=== PATIENT | male | born 1975 | race American Indian/Alaskan Native ===

== ENCOUNTER 2017-12-10 11:37 | Emergency (ER) | payer SELFPAY ==
--- NOTE | 2017-12-10 12:28 | XRay Report ---
RIGHT KNEE, 3 views: History: Right knee pain, injury The bony architecture is intact without evidence of fracture or dislocation. No joint effusion. Chronic calcifications overlie the course of the proximal MCL suggesting previous injury. 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 No acute process.
--- NOTE | 2017-12-10 15:53 | Emergency Department Report ---
HPI - General Chief Complaint: Extremity Injury, Lower Time Seen by Provider: 12/10/17 15:42 - HPI HPI: 42-year-old male presents to the emergency department with complaint of right knee pain that has been going on since the patient "twisted my knee" earlier today. He has been able to ambulate but he has pain with doing so and still has a throbbing pain when he is resting. He feels that the area is slightly swollen. He does not currently have a primary care physician. He tried some qvgn-ihr-jlpjupr pain medication for his symptoms without any relief. He has a history of eyg-ibgkexz-tudydtsez diabetes. ED Past Medical Hx - Past Medical History Hx Diabetes: Yes Hx Asthma: Yes - Social History Smoking Status: Current Every Day Smoker Substance Use Type: None - Medications Home Medications: Home Medications Medication Instructions Recorded Confirmed Last Taken Type ALBUTEROL Inhaler [ProAir HFA 2 puff IH QID PRN #1 inhalation 05/19/15 Unknown Rx Inhaler] HYDROcodone/APAP 5-325 [[place] 1 each PO Q6HR PRN #14 tablet 12/10/17 Unknown Rx 5/325] glipiZIDE [Glucotrol] 10 mg PO QDAY #30 tablet 12/10/17 Unknown Rx metFORMIN [Glucophage] 1,000 mg PO BID #60 tablet 12/10/17 Unknown Rx ED Review of Systems ROS: Stated complaint: RIGHT KNEE INJURY Other details as noted in HPI Comment: All other systems reviewed and negative Constitutional: denies: chills, fever Eyes: denies: eye pain, eye discharge, vision change ENT: denies: ear pain, throat pain Respiratory: denies: cough, shortness of breath, wheezing Cardiovascular: denies: chest pain, palpitations Gastrointestinal: denies: abdominal pain, nausea, diarrhea Genitourinary: denies: urgency, dysuria Musculoskeletal: joint swelling, arthralgia Skin: denies: rash, lesions Neurological: denies: headache, weakness, paresthesias Physical Exam - Physical Exam Vital Signs: Vital Signs 12/10/17 11:55 Temperature 98.5 F Pulse Rate 119 H Respiratory 18 Rate Blood Pressure 131/77 O2 Sat by Pulse 98 Oximetry Physical Exam: GENERAL: The patient is well-developed well-nourished. HENT: Normocephalic. Atraumatic. Patient has moist mucous membranes. EYES: Extraocular motions are intact. NECK: Supple. Trachea is midline. CHEST/LUNGS: Clear to auscultation. There is no respiratory distress noted. HEART/CARDIOVASCULAR: Regular. There is no tachycardia. There is no murmur. ABDOMEN: There is no abdominal distention. SKIN: There is some mild nonpitting swelling of the right knee. NEURO: The patient is awake, alert, and oriented. The patient is cooperative. The patient has no focal neurologic deficits. The patient has normal speech. MUSCULOSKELETAL: There is tenderness to palpation to the circumferential right knee. Negative anterior and posterior drawer test. No laxity with valgus or varus stress. ED Course Vital Signs 12/10/17 11:55 Temperature 98.5 F Pulse Rate 119 H Respiratory 18 Rate Blood Pressure 131/77 O2 Sat by Pulse 98 Oximetry ED Medical Decision Making - Radiology Data Radiology results: image reviewed interpreted by me: X-ray of the right knee does not show any dislocation. There is a small area of bone to the medial distal femur that is a questionable avulsion fracture. However this was later read by radiology as no acute fracture seen. - Medical Decision Making Patient presents with some right knee pain after twisting his knee. He has been unable to bear weight secondary to his discomfort. On physical examination it does not appear to be an unstable joint. He appears neurovascularly intact. He will be placed in a knee immobilizer and given orthopedic referrals. He understands that if he continues to have discomfort or feelings of instability to the joint, that he will possibly need an MRI in the near future. He was given a small amount of pain medication and I gave him a refill for his diabetes meds. He had some tachycardia when he first arrived but that resolved without any other intervention and otherwise his vital signs and stable throughout his ED course including being afebrile. - Differential Diagnosis knee fracture, so patient, sprain, strain, contusion Critical Care Time: No Critical care attestation.: If time is entered above; I have spent that time in minutes in the direct care of this critically ill patient, excluding procedure time. ED Disposition Clinical Impression: Right knee pain Qualifiers: Chronicity: acute Qualified Code(s): M25.561 - Pain in right knee Disposition: DC-01 TO HOME OR SELFCARE Is pt being admited?: No Condition: Stable Instructions: Knee Pain (ED) Additional Instructions: Please follow up with an orthopedist in the next few days. You can use rest, ice, elevation for the discomfort and inflammation. I have also prescribed for you some pain medication to take when you are at home without any responsibilities. You have been prescribed a medication that is sedating and therefore should not be taken prior to driving, working, and responsible for children and in no way should be mixed with alcohol of any quantity. Return to the emergency Department with any worsening of your symptoms or any acute distress. Prescriptions: glipiZIDE [Glucotrol] 10 mg PO QDAY #30 tablet HYDROcodone/APAP 5-325 [[place] 5/325] 1 each PO Q6HR PRN #14 tablet PRN Reason: Pain metFORMIN [Glucophage] 1,000 mg PO BID #60 tablet Referrals: PRIMARY CAREMD [Primary Care Provider] - 3-5 Days VLADIMIR DE OLIVEIRA MD [Staff Physician] - 3-5 Days [facility] [Provider Group] - 3-5 Days Forms: Accompanied Note, Work/School Release Form(ED) Time of Disposition: 15:59
[2017-12-10 15:55] VITALS: BP 135/85
== END 2017-12-10 16:12 | disposition home or self-care (01) ==
LOC: ED 11:37
DX: M25.561 Pain in right knee (principal); J45.909 Unspecified asthma, uncomplicated; E11.9 Type 2 diabetes mellitus without complications; F17.200 Nicotine dependence, unspecified, uncomplicated; Z79.84 Long term (current) use of oral hypoglycemic drugs; Z91.013 Allergy to seafood
CPT/HCPCS: 99283

== ENCOUNTER 2018-11-07 05:41 | Emergency (ER) | payer OTHER ==
[2018-11-07 05:59] VITALS: BP 163/104
[2018-11-07] MEDS ORDERED: TORADOL IM ONE (06:42)
[2018-11-07] MEDS ORDERED: DECADRON IM ONE (06:42)
--- NOTE | 2018-11-07 07:34 | Emergency Department Report ---
ED ENT HPI - General Chief complaint: Sore Throat Stated complaint: THROAT PAIN JOSE WITH ASTHMA Time Seen by Provider: 11/07/18 07:19 Source: patient Mode of arrival: Ambulatory Limitations: No Limitations - History of Present Illness Initial comments: Patient is a 43-year-old -[place] male with a history of asthma and sku-jgxfjsp-grfcgqjue diabetes who presents to the ED with complaint of acute onset of persistent nasal and sinus congestion, dry cough and sore throat with swollen tonsils for the last 4 days. Patient states that he is currently on Flonase, Zyrtec and ibuprofen prescribed days ago by an urgent care clinic after the rapid strep test was performed and was negative. Patient states that in the last 12 hours with sore throat has worsened tonight that he is unable to eat anything or swelling anything because of severe pain. Patient denies shortness of breath, dizziness, fever, chills, nausea, vomiting, discharge her, dysphonia, swollen lips or tongue, dizziness or headache, chest pain or dizziness MD complaint: sore throat, difficulty swallowing -: Sudden, days(s) (4) Location: throat Severity: severe Severity scale (0 -10): 7 Quality: burning, aching, sharp Consistency: constant Improves with: none Worsens with: swallowing, eating Associated Symptoms: cough, pain with swallowing, sore throat, rhinorrhea - Related Data Previous Rx's Medication Instructions Recorded Last Taken Type ALBUTEROL Inhaler (OR & NICU) 2 puff IH QID PRN #1 inhalation 05/19/15 Unknown Rx [ProAir HFA Inhaler] HYDROcodone/APAP 5-325 [[place] 1 each PO Q6HR PRN #14 tablet 12/10/17 Unknown Rx 5/325] glipiZIDE [Glucotrol] 10 mg PO QDAY #30 tablet 12/10/17 Unknown Rx metFORMIN [Glucophage] 1,000 mg PO BID #60 tablet 12/10/17 Unknown Rx Acetaminophen/Codeine [Tylenol 1 tab PO Q6H PRN #12 tab 11/07/18 Unknown Rx /Codeine # 3 tab] Lidocaine Viscous 2% 10 ml PO Q6H PRN #120 ml 11/07/18 Unknown Rx Penicillin V Potassium 500 mg PO Q6H #40 tablet 11/07/18 Unknown Rx methylPREDNISolone [Medrol] 4 mg PO DAILY #21 tab.ds.pk 11/07/18 Unknown Rx Allergies Allergy/AdvReac Type Severity Reaction Status Date / Time shellfish derived Allergy Hives Verified 05/19/15 11:44 ED Dental HPI - General Chief complaint: Sore Throat Stated complaint: THROAT PAIN JOSE WITH ASTHMA Time Seen by Provider: 11/07/18 07:19 Source: patient Mode of arrival: Ambulatory Limitations: No Limitations - History of Present Illness Initial comments: Patient is a 43-year-old -[place] male with a history of asthma and fzo-sktcgzk-bshvjxect diabetes who presents to the ED with complaint of acute onset of persistent nasal and sinus congestion, dry cough and sore throat with swollen tonsils for the last 4 days. Patient states that he is currently on Flonase, Zyrtec and ibuprofen prescribed days ago by an urgent care clinic after the rapid strep test was performed and was negative. Patient states that in the last 12 hours with sore throat has worsened tonight that he is unable to eat anything or swelling anything because of severe pain. Patient denies shortness of breath, dizziness, fever, chills, nausea, vomiting, discharge her, dysphonia, swollen lips or tongue, dizziness or headache, chest pain or dizziness MD complaint: sore throat, difficulty swallowing -: Sudden, days(s) (4) 1 - Erythematous oropharyngeal area with mildly swollen tonsils, no trismus or sign of peritonsillar abscess; uvula midline Severity: severe Quality: burning, aching, sharp Consistency: constant Worsens with: swallowing, eating - Related Data Previous Rx's Medication Instructions Recorded Last Taken Type ALBUTEROL Inhaler (OR & NICU) 2 puff IH QID PRN #1 inhalation 05/19/15 Unknown Rx [ProAir HFA Inhaler] HYDROcodone/APAP 5-325 [[place] 1 each PO Q6HR PRN #14 tablet 12/10/17 Unknown Rx 5/325] glipiZIDE [Glucotrol] 10 mg PO QDAY #30 tablet 12/10/17 Unknown Rx metFORMIN [Glucophage] 1,000 mg PO BID #60 tablet 12/10/17 Unknown Rx Acetaminophen/Codeine [Tylenol 1 tab PO Q6H PRN #12 tab 11/07/18 Unknown Rx /Codeine # 3 tab] Lidocaine Viscous 2% 10 ml PO Q6H PRN #120 ml 11/07/18 Unknown Rx Penicillin V Potassium 500 mg PO Q6H #40 tablet 11/07/18 Unknown Rx methylPREDNISolone [Medrol] 4 mg PO DAILY #21 tab.ds.pk 11/07/18 Unknown Rx Allergies Allergy/AdvReac Type Severity Reaction Status Date / Time shellfish derived Allergy Hives Verified 05/19/15 11:44 ED Review of Systems ROS: Stated complaint: THROAT PAIN JOSE WITH ASTHMA Other details as noted in HPI Comment: All other systems reviewed and negative Constitutional: no symptoms reported, see HPI. denies: chills, fever Eyes: as per HPI. denies: eye pain, eye discharge ENT: as per HPI, throat pain, congestion. denies: hearing loss, epistaxis Respiratory: no symptoms reported, see HPI. denies: orthopnea, shortness of breath Cardiovascular: as per HPI. denies: chest pain, palpitations, paroxysmal nocturnal dyspnea Endocrine: no symptoms reported, see HPI Gastrointestinal: denies: nausea, vomiting, constipation, hematemesis Genitourinary: as per HPI. denies: urgency, dysuria Musculoskeletal: as per HPI Skin: as per HPI Neurological: as per HPI Psychiatric: as per HPI Hematological/Lymphatic: as per HPI ED Past Medical Hx - Past Medical History Previous Medical History?: Yes Hx Diabetes: Yes Hx Asthma: Yes - Surgical History Past Surgical History?: No - Social History Smoking Status: Former Smoker Substance Use Type: Alcohol - Medications Home Medications: Home Medications Medication Instructions Recorded Confirmed Last Taken Type ALBUTEROL Inhaler (OR & NICU) 2 puff IH QID PRN #1 inhalation 05/19/15 Unknown Rx [ProAir HFA Inhaler] HYDROcodone/APAP 5-325 [[place] 1 each PO Q6HR PRN #14 tablet 12/10/17 Unknown Rx 5/325] glipiZIDE [Glucotrol] 10 mg PO QDAY #30 tablet 12/10/17 Unknown Rx metFORMIN [Glucophage] 1,000 mg PO BID #60 tablet 12/10/17 Unknown Rx Acetaminophen/Codeine [Tylenol 1 tab PO Q6H PRN #12 tab 11/07/18 Unknown Rx /Codeine # 3 tab] Lidocaine Viscous 2% 10 ml PO Q6H PRN #120 ml 11/07/18 Unknown Rx Penicillin V Potassium 500 mg PO Q6H #40 tablet 11/07/18 Unknown Rx methylPREDNISolone [Medrol] 4 mg PO DAILY #21 tab.ds.pk 11/07/18 Unknown Rx ED Physical Exam - General Limitations: No Limitations General appearance: alert, in no apparent distress - Head Head exam: Present: atraumatic, normocephalic, normal inspection - Eye Eye exam: Present: normal appearance, PERRL, EOMI Pupils: Present: normal accommodation - ENT ENT exam: Present: normal exam, TM's normal bilaterally, normal external ear exam, other (erythematous oropharyngeal and tonsillar areas, no trismus or peritonsillar abscess) - Neck Neck exam: Present: normal inspection, lymphadenopathy. Absent: tenderness - Respiratory Respiratory exam: Present: normal lung sounds bilaterally. Absent: respiratory distress, wheezes, chest wall tenderness - Cardiovascular Cardiovascular Exam: Present: normal rhythm, tachycardia, normal heart sounds - GI/Abdominal GI/Abdominal exam: Present: soft, normal bowel sounds. Absent: tenderness - Rectal Rectal exam: Present: deferred - Extremities Exam Extremities exam: Present: normal inspection, full ROM - Back Exam Back exam: Present: normal inspection, full ROM. Absent: CVA tenderness (R), CVA tenderness (L) - Neurological Exam Neurological exam: Present: alert, oriented X3, CN II-XII intact, normal gait, reflexes normal - Psychiatric Psychiatric exam: Present: normal affect - Skin Skin exam: Present: warm, dry, normal color ED Course Vital Signs 11/07/18 05:50 Temperature 98.7 F Pulse Rate 100 H Respiratory 18 Rate Blood Pressure 163/104 O2 Sat by Pulse 98 Oximetry ED Medical Decision Making - Medical Decision Making Patient is alert and oriented 3 and is not in any distress. Patient was treated in the ED with Decadron and Toradol. Patient discharged home on antibiotics and a Medrol Dosepak as well as pain medications. Patient otherwise to follow-up with his primary care physician 5-7 days for reevaluation or return to the ED immediately if symptoms get worse. - Differential Diagnosis acute strep pharyngitis; Viral pharyngitis, acuet bacterial tonsillitis Critical care attestation.: If time is entered above; I have spent that time in minutes in the direct care of this critically ill patient, excluding procedure time. ED Disposition Clinical Impression: Acute upper respiratory infection Acute pharyngitis Qualifiers: Pharyngitis/tonsillitis etiology: unspecified etiology Qualified Code(s): J02.9 - Acute pharyngitis, unspecified Disposition: TO HOME OR SELFCARE Is pt being admited?: No Does the pt Need Aspirin: No Condition: Stable Instructions: Pharyngitis (ED), Upper Respiratory Infection (ED) Additional Instructions: Take medications with food, drink plenty of fluids and follow up with your primary care physician in 5-7 days for reevaluation. Return to the ED immediately if symptoms get worse. Prescriptions: Lidocaine Viscous 2% 10 ml PO Q6H PRN #120 ml PRN Reason: Pain , Severe (7-10) methylPREDNISolone [Medrol] 4 mg PO DAILY #21 tab.ds.pk Penicillin V Potassium 500 mg PO Q6H #40 tablet Acetaminophen/Codeine [Tylenol /Codeine # 3 tab] 1 tab PO Q6H PRN #12 tab PRN Reason: Pain , Severe (7-10) Referrals: HYUN ENGLISH MD [Primary Care Provider] - 3-5 Days Time of Disposition: 07:42 Print Language: GERMAN
== END 2018-11-07 07:52 | disposition home or self-care (01) ==
LOC: ED 05:41
DX: J02.9 Acute pharyngitis, unspecified (principal); J06.9 Acute upper respiratory infection, unspecified; E11.9 Type 2 diabetes mellitus without complications; J45.909 Unspecified asthma, uncomplicated; Z87.891 Personal history of nicotine dependence; Z79.899 Other long term (current) drug therapy; Z91.013 Allergy to seafood
CPT/HCPCS: 96372; 99282; J1100; J1885

== ENCOUNTER 2021-06-15 11:19 | Outpatient (CLI) | payer OTHER ==
--- NOTE | 2021-06-15 13:11 | XRay Report ---
RIGHT KNEE 3 VIEW(S) INDICATION / CLINICAL INFORMATION: BILATERAL KNEE PAIN COMPARISON: None available. FINDINGS: BONES / JOINT(S): No acute fracture or subluxation. 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 ADDITIONAL FINDINGS: None. LEFT KNEE 3 VIEW(S) INDICATION / CLINICAL INFORMATION: BILATERAL KNEE PAIN COMPARISON: None available. FINDINGS: BONES / JOINT(S): No acute fracture or subluxation. Mild tricompartmental degenerative arthrosis SOFT TISSUES: No significant abnormality. ADDITIONAL FINDINGS: None. Signer Name: Garrett Urrutia MD Signed: 06/15/2021 1:06 PM Workstation Name: [id number]
== END 2021-06-15 11:20 | disposition home or self-care (01) ==
LOC: XRAY 11:19
PROVIDERS: ATTEND Internal Medicine
DX: M17.0 Bilateral primary osteoarthritis of knee (principal)